=== PATIENT | female | born 1965 | race Asian ===

== ENCOUNTER → 2017-04-27 18:58 | Outpatient (CLI) | payer BC | END | disposition home or self-care (01) | LOC: D.MAMMO 16:00 | DX: Z12.31 Encounter for screening mammogram for malignant neoplasm of breast (principal) ==

== ENCOUNTER → 2018-12-07 09:12 | Outpatient (CLI) | payer BC ==
[~2018-12-07 09:12] MED LIST: BAYER CHEWABLE81 MG PO; LIPITOR20 MG PO; METOPROLOL TART25 MG PO; PLAVIX75 MG PO; losartan-hctz PO
== END | disposition home or self-care (01) ==
LOC: D.CT 09:12
PROVIDERS: ATTEND Family Medicine
DX: I65.29 Occlusion and stenosis of unspecified carotid artery (principal)

== ENCOUNTER 2018-12-26 08:28 | Inpatient (IN) | payer BC ==
[~2018-12-26] VITALS: Ht 162.6 cm; Wt 81.6 kg
--- NOTE | ~2018-12-26 | HEMODYNAMI ---
PATIENT:KYLAH PASTOR MEDICAL RECORD: [id number] : 67 LOCATION:[facility] ADMISSION DATE: 12/28/18 Generatedon:12/30/201811:37 Patient name: KYLAH PASTOR Patient #: [id number] SSN: : 1965 Date of study: 12/30/2018 Page: Of Hemodynamic Procedure Report Patient Data Patient Demographics Procedure consent was obtained First Name: KYLAH Gender: Female Last Name: DAWIT : 1965 [facility] Initial: VICTORINO Age: 53 year(s) Patient #: [id number] Race: Additional ID: [id number] Contact details [address]: [address] [place] [address] State: [place] City: [place] Zip code: [address] Past Medical History Allergies: No known allergies Admission Admission Data Admission Date: 12/28/2018 Admission Time: 6:40 [facility] Height (in.): 64 BSA: 1.91 (m2) Height (cm.): 162.56 BMI: 32.54 (kg/m2) Weight (lbs.): 189.6 Weight (kg.): 86 Lab Results Lab Result Date: 12/30/2018 Lab Result Time: 0:00 Biochemistry Name Units Result Min Max BUN mg/dl 15 --(--*-)-- 7 18 Creatinine mg/dl 0.9 --(-*--)-- 0.6 1.3 CBC Name Units Result Min Max Hematocrit % 34.6 *-(----)-- 42 54 Hemoglobin g/dl 12.1 *-(----)-- 13.5 17.5 Procedure Procedure Types Cath Procedure Diagnostic Procedure [facility] w/Coronaries FFR/IVUS FFR Initial FFR Additional Sedation Charges Moderate Sedation up to 15 minutes Procedure Description Procedure Date Procedure Date: 12/30/2018 Procedure Start Time: 11:16 Procedure End Time: 11:37 Procedure Staff Name Function Froy Sun MD Performing Physician Cony Jarvis RT Monitor Peace De Oliveira RN Nurse Raymond Winter RT Scrub Procedure Data Cath Procedure Fluoroscopy Diagnostic fluoroscopy Total fluoroscopy Time: 4 time: 4 min min Diagnostic fluoroscopy Total fluoroscopy dose: 456 dose: 456 mGy mGy Contrast Material Contrast Material Type Amount (ml) Isovue 300 107 Entry Location Entry Primary Successful Side Size Upsize Upsize Entry Closure Succes sful Closure Location (Fr) 1 (Fr) 2 (Fr) Remarks Device Remarks Femoral Right 5 Fr 6 Fr Exoseal artery Short Estimated blood loss: 5 ml Diagnostic catheters Device Type Used For End Catheter Placement MULTIPACK Pigtail 5 Fr Procedure catheter MULTIPACK JL 4.0 5Fr Procedure catheter MULTIPACK 3DRC 5Fr Procedure catheter Procedure Complications No complications Procedure Medications Medication Administration Route Dosage Oxygen etCO2 Nasal cannula 2 l/min Lidocaine 2% added to field 20 Heparin Flush Bag added to field 2 bags (1000units/500ml NS) 0.9% NaCl I.V. 100 ml/hr Versed I.V. 1 mg Fentanyl I.V. 50 mcg Versed I.V. 1 mg Fentanyl I.V. 50 mcg Hemodynamics Rest BSA: 1.91 (m2) HGB: 12.1 (g/dl) O2 Consumption: Estimated: 178.33 (ml/min) O2 Co nsumption indexed: Estimated:93.37 (ml/min/m) Heart Rate: 60 (bpm) Snapshots Pre Cath Intra NCS Post Cath Vital Signs Time Heart Resp SPO2 etCO2 NIBP (mmHg) Rhythm Pain Sedation Rate (ipm) (%) (mmHg) Status Level (bpm) 11:06:24 60 10 100 36.6 159/87(146) NSR 0 (11) 10(A) , No pain 11:10:47 68 17 100 37.4 143/89(112) NSR 0 (11) 10(A) , No pain 11:15:09 67 17 100 23.9 138/73(114) NSR 0 (11) 10(A) , No pain 11:19:25 65 14 100 37 140/83(112) NSR 0 (11) 9(A) , No pain 11:23:43 64 17 100 40.4 135/82(117) NSR 0 (11) 9(A) , No pain 11:28:01 66 15 100 39.6 128/82(110) NSR 0 (11) 9(A) , No pain 11:32:21 66 18 100 37.3 144/79(112) NSR 0 (11) 10(A) , No pain 11:36:39 65 19 100 39.6 137/83(111) NSR 0 (11) 10(A) , No pain Medications Time Medication Route Dose Verified Delivered Reason Notes Eff ectiveness by by 11:11:29 Oxygen etCO2 2 Froy Buffie used for Nasal l/min Corinne De Oliveira RN procedure cannula 11:11:37 Lidocaine 2% added 20ml Froy Froy for local to vial Corinne Sun MD anesthetic field 11:11:44 Heparin Flush added 2 Froy Froy used for Bag to bags Corinne Sun MD procedure (1000units/500ml field NS) 11:11:53 0.9% NaCl I.V. 100 Froy Buffie Per ml/hr Corinne De Oliveira RN physician 11:14:14 Versed I.V. 1 mg Froy Presleyie for Corinne De Oliveira RN sedation 11:14:20 Fentanyl I.V. 50 Froy Buffie for mcg Corinne De Oliveira RN sedation 11:22:41 Versed I.V. 1 mg Froy Buffie for Corinne De Oliveira RN sedation 11:22:45 Fentanyl I.V. 50 Froy Buffie for mcg Corinne De Oliveira RN sedation Procedure Log Time Note 10:34:02 Raymond Winter RT(R) sent for patient. Start room use. 10:34:03 Time tracking: Regular hours (M-F 7:00 - 5:00) 10:34:07 Plan of Care:Hemodynamics will remain stable., Cardiac rhythm will remain stable., Comfort level will be maintained., Respiratory function will remain adequate., Patient/ family verbilizes understanding of procedure., Procedure tolerated without complication., Recovers from procedure without complications.. 10:44:32 Signed procedure consent form obtained from patient. 10:44:34 Diagnostic Cath status Urgent 10:45:41 Patient allergic to No known allergies 10:45:46 Patient Weight : 189.6 lbs 10:45:51 Patient Height : 64 inches 10:46:43 Lab Result : BUN 15 mg/dl 10:46:43 Lab Result : Creatinine 0.9 mg/dl 10:46:43 Lab Result : Hematocrit 34.6 % 10:46:43 Lab Result : Hemoglobin 12.1 g/dl 10:58:09 Patient received from CVICU to CCL 1 Alert and oriented. Tansferred to table in Supine position. 10:58:10 Warm blankets applied, and arron hugger turned on for patient comfort. 10:58:10 Correct patient and procedure confirmed by team. 10:58:10 ECG and BP/O2 sat monitors applied to patient. 11:05:00 Vital chart was started 11:05:01 Baseline sample Acquired. 11:05:04 Rhythm: sinus rhythm 11:05:06 Full Disclosure recording started 11:05:07 Pre-procedure instructions explained to patient. 11:05:07 Pre-op teaching completed and patient verbalized understanding. 11:05:20 Family unavailable. 11:05:22 Patient NPO since Midnight. 11:05:24 Is patient on blood thinner?Yes 11:05:35 PRE LOADED PLAVIX THIS MORNING 11:05:37 Patient diabetic? No. 11:05:40 Patient not . Patient has had tubal. 11:05:43 Previous problem with sedation/anesthesia? No ? 11:05:44 Snore? Yes 11:05:45 Sleep apnea? No 11:05:46 Deviated septum? No 11:05:49 Opens mouth fully? Yes 11:05:52 Sticks out tongue? Yes 11:05:54 Airway obstruction? No ? 11:05:56 Dentures? No MISSING TOOTH 11:05:59 Pre procedure: right dorsailis pedis pulse 1+ Palpable, but thready & weak; easily obliterated 11:06:01 Patient pain scale 0/10 ?. 11:06:14 IV patent on arrival in Lt subclavian with 0.9% NaCl at KVO. 11:06:17 Lab results completed and on chart. 11:06:21 Right groin area was prepped with chlora-prep and draped in sterile fashion 11:06:22 Alarms reviewed by R. N. 11:06:22 Sharps counted by scrub and verified by R.N. 11:06:38 RT GROIN PREPPED DUE TO POST CAROTID SURGERY 11:06:40 Use device set Femoral Dx 11:06:41 ACIST Syringe (53725) opened to sterile field. 11:06:41 Bag Decanter (2002S) opened to sterile field. 11:06:42 ACIST Hand Control (39382) opened to sterile field. 11:06:42 ACIST Manifold (38618) opened to sterile field. 11:06:43 Tegaderm 4 x 4 (1626W) opened to sterile field. 11:06:45 Medline Cath Pack ([id number]) opened to sterile field. 11:06:45 DIAGNOSTIC WIRE .035 260cm J wire (252857) opened to sterile field. 11:06:46 DIAGNOSTIC Multipack 5Fr catheter set (IS5902) opened to sterile field. 11:06:47 SHEATH 5FR [place] (XUR221) opened to sterile field. 11:11:29 Oxygen 2 l/min etCO2 Nasal cannula was administered by Peace De Oliveira RN; used for procedure; 11:11:37 Lidocaine 2% 20ml vial added to field was administered by Froy Sun MD; for local anesthetic; 11:11:44 Heparin Flush Bag (1000units/500ml NS) 2 bags added to field was administered by Froy Sun MD; used for procedure; 11:11:53 0.9% NaCl 100 ml/hr I.V. was administered by Peace De Oliveira RN; Per physician; 11:13:50 --------ALL STOP TIME OUT------ 11:13:50 Final Timeout: patient, procedure, and site verified with staff and physician. All members of the team are in agreement. 11:13:51 Right groin site verified by team. 11:13:54 Maximum allowable Isovue 300 dose 300ml. Physician notified. (300ml for normal creatinines. For patients with creatinine of 1.7 or higher multiply weight(kg) x 5 divided by creatinine.) 11:13:57 Fire Safety Assessment: A--An alcohol-based skin anteseptic being used preoperatively., C--Open oxygen or nitrous oxide is being used., D--An ESU, laser, or fiber-optic light is being used. 11:14:00 Physical assessment completed. ASA score P 2 - A patient with mild systemic disease as per Froy Sun MD. 11:14:04 Sedation plan: IV Moderate Sedation Medication:Versed, Fentanyl 11:14:14 Versed 1 mg I.V. was administered by Peace De Oliveira RN; for sedation; 11:14:20 Fentanyl 50 mcg I.V. was administered by Peace De Oliveira RN; for sedation; 11:16:31 Zero performed for pressure channel P1 11:16:36 Procedure started. 11:16:38 Local anesthetic to right femoral artery with Lidocaine 2% by Froy Sun MD.INITIAL ACCESS ONLY 11:16:48 A 5 Fr sheath was inserted into the Right Femoral artery 11:17:11 A MULTIPACK Pigtail 5 Fr catheter was advanced over the wire and used for Procedure. 11:17:17 LV gram done using FREGOSO 11:17:21 Injector settings: Ml/sec: 10, Volume: 20, 11:17:28 EF : 60 % 11:17:29 Catheter removed. 11:17:33 A MULTIPACK JL 4.0 5Fr catheter was advanced over the wire and used for Procedure. 11:18:55 LCA angiography performed. 11:19:31 Catheter removed. 11:19:35 A MULTIPACK 3DRC 5Fr catheter was advanced over the wire and used for Procedure. 11:19:49 SHEATH 6FR [place] (MCP518) opened to sterile field. 11:19:53 INFLATOR Merit BasixCompak (US7857) opened to sterile field. 11:20:11 [place] Verrata Plus pressure wire (70009P) opened to sterile field. 11:20:19 GUIDE 6FR XBLAD 3.5 catheter ([id number]) opened to sterile field. 11:20:30 RCA angiography performed. 11:20:32 Catheter removed. 11:21:12 Sheath upsized to a 6 Fr Short. 11:21:37 6 Fr XBLAD 3.5 guide catheter was inserted over the wire 11:21:53 FFR/IFR wire advanced. 11:22:41 Versed 1 mg I.V. was administered by Peace De Oliveira RN; for sedation; 11:22:45 Fentanyl 50 mcg I.V. was administered by Peace De Oliveira RN; for sedation; 11:24:38 IFR REMOVED 11:24:48 Guide Catheter removed. unable to cannulate vessel. 11:24:52 GUIDE 6FR XBLAD 4.0 catheter ([id number]) opened to sterile field. 11:24:59 6 Fr XBLAD 4 guide catheter was inserted over the wire 11:25:30 FFR/IFR wire advanced. 11:27:38 IFR PASS TO THE DIAGONAL LESION PERFORMED 11:28:23 IFR REMOVED 11:28:28 Guide catheter removed. 11:28:43 GUIDE 6FR 3DRC catheter (BP93XIN) opened to sterile field. 11:28:48 6 Fr 3DRC guide catheter was inserted over the wire 11:29:22 FFR/IFR wire advanced. 11:30:40 IFR PASS TO THE RCA LESION PERFORMED 11:30:45 IFR REMOVED 11:30:51 Guide catheter removed. 11:30:57 EXOSEAL 6Fr (EX600) opened to sterile field. 11:31:08 Sheath removed intact; hemostasis achieved with Exoseal to the Right Femoral artery. 11:31:13 Procedure ended.(Physican Out) 11:31:55 Fluoroscopy dose: 456 mGy 11:31:55 Flurop Dose total: 456 11:31:59 Contrast amount:Isovue 300 107ml. 11:32:02 Fluoroscopy time 04.00 minutes. 11:32:09 Sharps counted by scrub and verified by R.N. 11:32:12 Post-op/insertion site Right Femoral artery dressed using a 4 x 4 and Tegaderm. 11:32:15 Post-procedure physical assessment completed. ASA score P 2 - A patient with mild systemic disease as per Froy Sun MD. 11:32:26 Post procedure rhythm: sinus rhythm 11:32:33 Estimated blood loss: 5 ml 11:32:35 Post procedure instruction explained to patient.Patient verbalizes understanding. 11:32:35 Patient needs reinforcement of post procedure teaching. 11:32:58 Procedure type changed to Cath procedure, Diagnostic procedure, LHC, LHC w/Coronaries, FFR/IVUS, FFR Initial, FFR Additional, Sedation Charges, Moderate Sedation up to 15 minutes 11:33:21 Procedure and supply charges have been captured, reviewed, submitted and are correct. 11:33:24 Procedure Complication : No complications 11:36:59 Vital chart was stopped 11:36:59 See physician's report for complete and final results. 11:37:04 Report given to CVICU. 11:37:06 Patient transfered to CVICU with Bed. 11:37:08 Procedure ended. 11:37:08 Full Disclosure recording stopped 11:37:13 End room use (Document Last) Device Usage Item Name Manufacture Quantity Catalog Hospital Part Current Minima l Lot# / Number Charge Number Stock Stock Serial# Code ACEMORY Acist 1 60886 776849 675802 762217 20 Syringe Medical (16990) Systems Inc Bag Microtek 1 943929 83277 644538 5 Decanter Medical Inc. () ACIST Hand Acist 1 89039 169970 530610 495561 5 Control Medical (12783) Systems Inc ACIST Acist 1 69322 695376 556993 046524 5 Manifold Medical (49885) Systems Inc Tegaderm 4 3M 1 1626W 778711 199048 173870 5 x 4 (1626W) Medline Medline 1 [id number] 901112 28543 133539 5 Cath Pack ([id number]) DIAGNOSTIC [facility] [place] 1 439503 138017 658299 422987 30 WIRE .035 260cm J wire (360098) DIAGNOSTIC Cardinal 1 OE4201 682186 30675 584327 30 Multipack Health 5Fr catheter set (XY0367) SHEATH 5FR Terumo 1 ZHK267 090324 165439 059031 5 [place] (HEK913) MULTIPACK Cardinal 1 831846 5 Pigtail 5 Health Fr catheter MULTIPACK Cardinal 1 369069 5 JL 4.0 5Fr Health catheter MULTIPACK Cardinal 1 418456 5 3DRC 5Fr Health catheter SHEATH 6FR Terumo 1 TIV350 581907 307915 535623 40 [place] (RFJ015) INFLATOR Merit 1 OQ3441 248635 311984 913128 15 [facility] Medical BasixCompak (FM0660) [place] Mayodan 1 75753X 745520 556955959 535505 5 Verrata Plus pressure wire (91291L) GUIDE 6FR Cardinal 1 15889022 009794 342440 587799 10 XBLAD 3.5 Health catheter (73965481) GUIDE 6FR Cardinal 1 98743863 021886 603545 991835 3 XBLAD 4.0 Health catheter (47976113) GUIDE 6FR Medtronic 1 OQ44TON 608894 207496 624037 1 3DRC catheter (LF70VFI) EXOSEAL 6Fr Cardinal 1 EX600 726411 160122 549749 10 (EX600) Health Signature Audit [place] Stage Time Signature Unsigned Intra-Procedure 12/30/2018 Cony Jarvis 11:37:27 AM RT(R) Signatures Monitor : Cony Jarvis Signature : RT Date : Time : [address] [place] [address]
[2018-12-26] MEDS ORDERED: METOPROLOL TART25 MG PO (09:02)
[2018-12-26] MEDS ORDERED: PLAVIX75 MG PO (09:02)
[2018-12-26] MEDS ORDERED: losartan-hctz PO (09:03)
[2018-12-26] MEDS ORDERED: LIPITOR20 MG PO (09:04)
[2018-12-26] MEDS ORDERED: BAYER CHEWABLE81 MG PO (09:04)
[2018-12-26 11:24] LABS: HEMATOCRIT 40.4 % (36.0-48.0); HEMOGLOBIN 14.5 g/dL (12-16); MCH 32.8 pg (26.0-34.0); MCHC 35.9 g/dL (31.0-37.0); MCV 91.4 fL (80.0-100.0); MEAN PLATELET VOLUME 11.1 fL (7.4-10.4); RBC 4.42 10x6/uL (4.00-5.40); RDW 12.7 % (11.5-14.5); WBC 10.1 10x3/uL (4.8-10.8)
[2018-12-26 11:25] LABS: ALBUMIN 4.3 g/dL (3.4-5.0); ANION GAP 13.7 mmol/L (8-16); BILIRUBIN - TOTAL 0.68 mg/dL (0.2-1.3); CALCIUM 9.3 mg/dL (8.5-10.1); CARBON DIOXIDE 24.3 mmol/L (21.0-32.0); PROTEIN - SERUM 7.7 g/dL (6.4-8.2)
[2018-12-26 11:30] LABS: APTT 30.4 SECONDS (22.8-39.4); INR 0.95 (0.85-1.17); PROTIME 12.2 SECONDS (11.6-15.0)
[2018-12-26 12:25] LABS: APPEARANCE CLEAR (CLEAR); COLOR YELLOW (YELLOW); SPECIFIC GRAVITY 1.015 (1.005-1.020)
[2018-12-26 12:26] LABS: BACTERIA FEW /hpf (NONE SEEN); BILIRUBIN NEGATIVE (NEGATIVE); EPITHELIAL CELLS RARE /hpf (0-5); GLUCOSE NEGATIVE (NEGATIVE); KETONE NEGATIVE (NEGATIVE); MUCUS <1+ /lpf (NONE SEEN); NITRITE NEGATIVE (NEGATIVE); PROTEIN NEGATIVE (NEGATIVE); RED CELLS - URINE OCC /hpf (0-5); UROBILINOGEN NORMAL (NORMAL); WHITE CELLS - URINE RARE /hpf (0-5)
[2018-12-28] VITALS (33 sets, daily range): BP systolic 82–153; BP diastolic 43–72; Ht 162.6 cm; Wt 81.6 kg
--- NOTE | 2018-12-28 18:34 | NUR ---
1500-CXR DONE-NOTED SINUS BRADYCARDIA-DIRECTED TO HOLD LOPRESSOR PM DOSE IF HEART RATE <60-R NECK SOFT TO TOUCH-J VELASQUEZ DRAIN IN PLACE AND COMPRESSED 1520-FAMILY BROUGHT TO [facility]-PT AWAKENS EASILY SB ON MONITOR 1645-ULTRAM PO GIVEN FOR 02/04 INCISIONAL-SWALLOWS WITHOUT MARKED DIFFICULTY 1705-NOTED HR 44 SB-NATALIA 105/50-0536-MXGAL HR 41 JUNCTIONAL NIBP 100/68-DOPAMINE 3MCG STARTED-ON STANDBY -ACCOMPANIED WITH PT FROM [place] 1710DR SNE NOTIFIED OF PRESENT STATUS-FREQUENT JUNCTIONAL TO SINUS NICA-DOPAMINE TITRATED TO 5MCG TO MEET PARAMETER OF HR 60-ABP INCREASED TO 155/94-NTG TITRATED TO 11ML/H TO MAINTAIN ABP PARAMETER <140-AVAILABLE ON STANDBY FROM OR 1720-RETURN CALL WITH CONTINUED FREQUENT JUNCTIONAL 40 RHYTHM ALT WITH SINUS NICA-FURTHER DIRECTION GIVEN 1750-ADDITIONAL ORDER RECIEVED -CURRENTLY SR WITH NO FURTHER EPISODES OF JUCTINAL NOTED DOPAMINE AT 2CG-NITRO OFF-ABP 133/56-HR 60 SR -R NECK SOFT TO TOUCH 1810-ADDITIONAL ORDER RECIEVED-DOPAMINE OFF AND NTG OFF-REMAIN ON STANDBY-SR 55-CON522/43-WITHIN NEW PARAMETER AND ABP PARAMETER
--- NOTE | 2018-12-28 20:07 | NUR ---
PT CONTINUES TO BE SINUS NICA WITH A RATE RUNNING IN THE MID TO LOW 40'S OCCASIONAL BREIF DROP INTO UPPER 30'S. EKG OBTAINED MD CONTACTED. PT HAD STATED SHE HAS MILD CHEST PAIN 2/10 ON SCALE. "FEELS LIKE SOMEONE PUNCHED ME IN THE CHEST" DR BARRAGAN CONTACTED. ORDERS RECEIVED FOR MORPHINE IV 1-2 MG Q1HPRN CHEST PAIN. CRASH CART PLACED IN ROOM A PRECAUTION IN CASE OF EMERGENCY NEED FOR PACING ETC.
--- NOTE | 2018-12-28 20:15 | NUR ---
PT STATES CHEST PAIN IS NO LONGER PRESENT. WILL MONITOR
[2018-12-29] VITALS (20 sets, daily range): BP systolic 101–149; BP diastolic 48–74
--- NOTE | 2018-12-29 01:00 | NUR ---
PATIENT IS SLEEPING, HR CONTINUES TO BE BRADYCARDIC, VS OTHERWISE STABLE, PATIENT IN NO APPARENT DISTRESS, WILL CONTINUE TO MONITOR
[2018-12-29 05:42] LABS: HEMATOCRIT 34.6 % (36.0-48.0); HEMOGLOBIN 12.1 g/dL (12-16); MCH 32.5 pg (26.0-34.0); MEAN PLATELET VOLUME 10.5 fL (7.4-10.4); RBC 3.72 10x6/uL (4.00-5.40); RDW 12.8 % (11.5-14.5); WBC 11.2 10x3/uL (4.8-10.8)
[2018-12-29 06:09] LABS: ANION GAP 16.6 mmol/L (8-16); CALCIUM 7.9 mg/dL (8.5-10.1); CARBON DIOXIDE 21.3 mmol/L (21.0-32.0); CREATININE - SERUM 0.9 mg/dL (0.6-1.3); POTASSIUM - SERUM 3.9 mmol/L (3.5-5.1)
--- NOTE | 2018-12-29 06:22 | NUR ---
CLORHEX WASH, LINEN CHANGE AND CONTRERAS CARE PERFORMED. BRANDON GUZMAN
--- NOTE | 2018-12-29 09:45 | OP ---
PATIENT NAME: KYLAH PASTOR MEDICAL RECORD: [id number] :67 LOCATION:[id number] ADMISSION DATE:12/28/18 SURGEON: BRONSON CHATTERJEE MD DATE OF OPERATION: 12/28/2018 SURGEON: Bronson Chatterjee MD CONTACT AND SERVICE CLERKS SUPERVISOR: Veto Perez MD PROCEDURE PERFORMED: Right carotid endarterectomy. PREOPERATIVE DIAGNOSIS: Symptomatic critical right internal carotid artery stenosis. POSTOPERATIVE DIAGNOSIS: Symptomatic critical right internal carotid artery stenosis. ANESTHESIA: General endotracheal anesthesia. ESTIMATED BLOOD LOSS: 50 cc. COMPLICATIONS: None. SPECIMENS: Plaque. CONDITION: Stable. DISPOSITION: CV ICU. OPERATIVE FINDINGS: 1. Discrete tight plaque in the internal carotid, the external carotid was lateral to the internal carotid and was retracted anteriorly for exposure. 2. Neurologically intact to CV ICU. OPERATIVE INDICATIONS: Symptomatic right carotid stenosis. DESCRIPTION OF PROCEDURE: The patient brought to the operative suite. General anesthesia was obtained. The patient was prepped and draped. An oblique incision was made in the neck, taken down through the subcutaneous tissue. Common carotid was exposed and encircled. External carotid was exposed, but due to the lateral aspect of the thyroid branch it was divided between ligatures. The internal carotid was dissected out distally. Heparin was given. After the heparin circulated backbleeding, the internal carotid was controlled with a bulldog clamp. Inflow to the common carotid with a vascular clamp and the external carotid controlled with vessel loops. EEG was monitored and obviously heparin had been given and was redosed at 30 minutes. The EEG was normal for 2 minutes, proceeded with endarterectomy, dividing the plaque and thorough irrigation, removal of loose bits of debris suturing a CorMatrix patch along the edges and completing the anastomosis after flushing all the major arterial systems and the endarterectomy bed again. Interrupted sutures for hemostasis. Flow restored. Drain placed. Wound closed in 3 layers including Dermabond on the skin. Anesthesia reversed. Neurologically intact to the CVICU. TRANSINT:[id number] Voice Confirmation ID: [id number] DOCUMENT ID: [id number] OPERATIVE REPORT [id number] KYLAH PASTOR BRONSON CHATTERJEE MD at 0945 CC: [id number] DICTATION DATE: 12/28/18 1410 ENDOSCOPY SPECIALTY TECHNICIAN: 12/28/[address] [facility] [address] [id number]
--- NOTE | 2018-12-29 14:45 | NUR ---
0700-RECIVED AWAKE AND ALERT-[facility]SISTED TO [facility]-CHAIR TOLERATED WELL-SR -SINUS NICA ON MONITOR-DENIES CHEST DISCOMFORT-NOTED NO TRACHEAL DEVIATION-R NECK INCISION SOFT TO TOUCH-BENSON =STRONG 1000-DR CHATTERJEE AT [facility]-SPOKE WITH PT REGARDING CURRENT STATUS AND SERIES OF EVENTS-R JPRATT D/C'D DIRECTED BY DR CHATTERJEE-R RADIAL MARC D/C'D PER POLICY-L PERIPHERAL IV D/C'D 1115-12 LEAD REPEATED DIRECTED BY DR BARRAGAN AT BEDSIDE AND SPOKE WITH PT 1230-L 2LCVL SALINE LOCKED
--- NOTE | 2018-12-29 19:30 | NUR ---
SHIFT ASSESSMENT COMPLETE, PER NURSING FLOWSHEET. PATIENT GETS UP TO BATHROOM WITH MINIMAL ASSIST, PRIMARILY MANAGING LINES FOR MONITORING EQUIPMENT. NO NEEDS VOICED OR NOTED AT THIS TIME, C/L IN REACH
--- NOTE | 2018-12-29 21:00 | NUR ---
PATIENT INDEPENDENTLY REPOSITIONS SELF. PLAN OF CARE FOR THIS SHIFT REVIEWED WITH PATIENT, PATIENT HR IS BRADYCARDIC, M.D. AWARE, VS OTHERWISE STABLE, WILL CONTINUE TO MONITOR
--- NOTE | 2018-12-29 23:00 | NUR ---
RE-ASSESSMENT COMPLETE, PER NURSING FLOWSHEET. PATIENT CONTINUES TO REPOSITION SELF INDEPENDENTLY, CONTINUE POC
[2018-12-30] VITALS (21 sets, daily range): BP systolic 115–150; BP diastolic 61–91
--- NOTE | 2018-12-30 01:00 | NUR ---
PATIENT IS SLEEPING, IN NO APPARENT DISTRESS, HR REMAINS BRADYCARDIC IN 50'S, ALL OTHER VS CONTINUE TO REMAIN STABLE, CONTINUE POC, C/L IN REACH
--- NOTE | 2018-12-30 03:00 | NUR ---
RE-ASSESSMENT COMPLETE, PER NURSING FLOWSHEET. PATIENT CONTINUES TO FUNCTION INDEPENDENTLY, NO OTHER NEEDS VOICED OR NOTED AT THIS TIME, C/L IN REACH
--- NOTE | 2018-12-30 05:00 | NUR ---
PATIENT UP TO BATHROOM AND SINK, INDPENDENTLY PERFOMING ADL'S OF ORAL CARE AND HAIR CARE. SOME SWELLING NOTED TO RIGHT SIDE OF NECK UNDER SURGICAL DRESSING, WILL CONTINUE TO MONITOR
[2018-12-30 07:49] LABS: BASOPHILS 0.3 % (0-2); EOSINOPHILS 1.8 % (0-7); HEMATOCRIT 33.7 % (36.0-48.0); HEMOGLOBIN 11.5 g/dL (12-16); IMMATURE GRANULOCYTES 0.5 % (0-5); LYMPHOCYTES 17.8 % (15-50); MCH 31.9 pg (26.0-34.0); MCHC 34.1 g/dL (31.0-37.0); MCV 93.4 fL (80.0-100.0); MEAN PLATELET VOLUME 10.6 fL (7.4-10.4); NEUTROPHILS 72.6 % (40-80); PLATELET COUNT 174 10x3/uL (130-400); RBC 3.61 10x6/uL (4.00-5.40); RDW 12.7 % (11.5-14.5); WBC 9.7 10x3/uL (4.8-10.8)
[2018-12-30 08:11] LABS: ALBUMIN 3.5 g/dL (3.4-5.0); ANION GAP 11.3 mmol/L (8-16); BILIRUBIN - TOTAL 0.38 mg/dL (0.2-1.3); CALCIUM 8.3 mg/dL (8.5-10.1); CARBON DIOXIDE 26.2 mmol/L (21.0-32.0); CREATININE - SERUM 1.1 mg/dL (0.6-1.3); POTASSIUM - SERUM 3.5 mmol/L (3.5-5.1); PROTEIN - SERUM 6.8 g/dL (6.4-8.2)
--- NOTE | 2018-12-30 08:38 | NUR ---
0715-RECIEVED AWAKE AND ALERT-C/O R EYE HEADACHE-3 10-DENIES VISION DISTURBANCE-R NECK INCISION AND [id number] TRACHEAL DEVIATION NOTED-NO CHANGE IN SWELLING- GIVEN-BOTH DR BARRAGAN AND SEN NOTIFIED-CNTINUE NPO FOR PLANNED CATH
--- NOTE | 2018-12-30 09:51 | NUR ---
FAMILY AT BEDSDIE-PREMEDS GIVEN-PT STATED HEADACHE LESSENED-
--- NOTE | 2018-12-30 12:00 | NUR ---
RETURNED FROM ACCOUNT INFORMATION CLERK-SUPINE -R GROIN SOFT TO TOUCH-NO HEMATOMA-R NECK DRG REMOVED-EDEMA NOTED WITH NO CHANGE-NO TRACHEAL DEVIATION-AWAKE AND ALERT-L CVL INFUSING NS AT 100ML/H-SET FOR 400ML OVER 4H-NIECE AT BEDSDIE-STATUS REPORT AND FINDINGS GIVEN VERBALLY DIRECTED BY PT-O2 AT 2L
--- NOTE | 2018-12-30 16:43 | NUR ---
1345-R GROIN SOFT TO TOUCH-NO HEMATOMA NOTED-HOB ELEVATED 1400-AMBULATED IN RM-R GROIN SOFT TO TOUCH 1600-L CVL SALINE LOCKED
--- NOTE | 2018-12-30 19:00 | NUR ---
REPORT RECEIVED, SHIFT ASSESSMENT COMPLETE PER FLOW SHEET, PT AWAKE AND ALERT, DENIES PAIN OR NEEDS, MOVES WITHOUT ASSIST IN BED, RIGHT SIDE OF NECK HAS SLIGHT EDEMA AROUND RCA SITE, RCA SITE C/D/I, VSS, WILL CONTINUE TO MONITOR
--- NOTE | 2018-12-30 21:00 | NUR ---
PT OOB TO BATHROOM WITHOUT ASSIST, PT DENIES NEED, AMBULATED BACK TO BED, VSS, NO FURTHER NEEDS AT THIS TIME
--- NOTE | 2018-12-30 23:00 | NUR ---
REASSESSMENT COMPLETE PER FLOW SHEET, NO ACUTE CHANGES NOTED, VSS, LARGE CUP OF ICE GIVEN PER REQUEST, PT REPOSITIONS SELF IN BED WITHOUT ASSIST FREQUENTLY, DENIES PAIN OR NEEDS AT THIS TIME WILL CONTINUE TO MONITOR
[2018-12-31] VITALS (12 sets, daily range): BP systolic 113–147; BP diastolic 60–76
--- NOTE | 2018-12-31 01:00 | NUR ---
PT OOB TO BATHROOM, VSS, NO PAIN OR NEEDS AT THIS TIME, REPOSITIONED IN BED FOR COMFORT, PT AAOx4 NO S/S OF ACUTE DISTRESS NOTED, WILL CONTINUE TO MONITOR
--- NOTE | 2018-12-31 03:00 | NUR ---
REASSESSMENT COMPLETE PER FLOW SHEET, NO ACUTE CHANGES OR DISTRESS NOTED, RIGHT NECK/FACE HAS SLIGHT SWELLING, PT DENIES VISION OR HEADACHES, EQUAL MOVEMENT WITH EXTREMITIES BILAT, REPOSITIOES FREQUENTLY WITHOUT ASSIST FOR COMFORT, VSS, DENIES NEEDS AT THIS TIME, WILL CONTINUE TO MONITOR
--- NOTE | 2018-12-31 05:00 | NUR ---
COMPLETE BATH AND LINEN CHANGE WITH NEW GOWN, PT COMPLETED WITH MINIMAL ASSIST FROM NURSE, AMBULATED IN ROOM AND TO CHAIR WITHOUT ASSIST, GAIT STEADY, PPP VSS, NSR ON CM, PT DENIES PAIN OR NEEDS AT THIS TIME, WILL CONTINUE TO MONITOR
--- NOTE | 2018-12-31 06:30 | NUR ---
PT SINUS BRADYCARDIC ON CM 50-60'S, PT AWAKE AND ALERT DENIES DISCOMFORT OR CP, PT RESTING IN BED WITH HOB ELEVATED, OTHER VSS, WILL CONTINUE TO MONITOR AND WILL NOTIFY ONCOMING RN
--- NOTE | 2018-12-31 07:00 | NUR ---
REPORT RECIEVED FROM THE OFF GOING RN. SEE ASSESSMENT IN THE PTS FLOW SHEET. PT SITTING IN BED. PT DENIES PAIN. INCISION WELL APPROXIMATED TO THE RIGHT JUGULAR. TRACHEA MIDLINE. NEUROCHECKS WNLS. PT ABLE TO GET OOB WITH NO ISSUES AND SIT IN HER BEDSIDE CHAIR. CLEAR LIQUID DIET PROVIDED BY THE KITCHEN. PT REQUEST A REGULAR BREAKFAST. KITCHEN CALLED AND MADE AWARE. MEAL BEING DELIVERED SOON. VSS. WILL CONT POC.
--- NOTE | 2018-12-31 08:00 | NUR ---
DR CHATTERJEE AT THE PTS BEDSIDE. PLAN FOR DISCHARGE SOMETIME TODAY.
--- NOTE | 2018-12-31 11:00 | NUR ---
CVL DC'D WITH THE CATHETER TIP INTACT. DRESSING APPLIED. WILL CONT POC.
[2018-12-31] MEDS ORDERED: NICORETTE2 MG PO (11:45)
[2018-12-31] MEDS ORDERED: ULTRAM50 MG PO (11:48)
--- NOTE | 2018-12-31 12:00 | NUR ---
LUNCH TRAY PROVIVIDED FOR THE PT. WAITING FOR SARAI FOR DC INSTRUCTIONS. WILL CONT PO.
--- NOTE | 2018-12-31 13:42 | NUR ---
FRANCY HINTON RN, IN WITH THE PT GOING OVER DC INSTRUCTIONS.
--- NOTE | 2018-12-31 14:23 | NUR ---
ALL BELONINGS ACCOUTNED FOR. DISCHARGE INSTRUCTIONS WENT OVER WITH THE PT. PT HAS NO QUESTIONS AT THIS TIME. VSS. PT LEFT IN A STABLE CONDITION. GOT INTO THE [place] WITH HER FRIEND.
--- NOTE | 2019-01-01 13:28 | MORECARE ---
CASE MANAGEMENT DISCHARGE SUMMARY PATIENT: KYLAH PASTORI UNIT: [id number] ADM DATE: 12/28/18 AGE: 53 : 67 SEX: F ROOM/BED: [facility] AUTHOR: MILLY GARRISON PHYSICIAN: REFERRING PHYSICIAN: BRONSON CHATTERJEE MD DATE OF SERVICE: 01/01/19 Discharge Plan Patient Name: KYLAH PASTOR Facility: [facility]:[employer] : 1965 Planned Disposition: Home Anticipated Discharge Date: Discharge Date: 12/31/2018 Expected LOS: Initial Reviewer: [email or web address] Initial Review Date: 12/31/2018 Generated: 01/01/19 2:28 pm DCPIA - Discharge Planning Initial Assessment Updated by [email or web address]: Saloni Garrison on 01/01/19 1:25 pm * Is the patient Alert and Oriented? Yes * How many steps to enter\exit or inside your home? * PCP BOBBY * Pharmacy [facility] * Preadmission Environment Home Alone * ADLs Independent * Equipment None * List name and contact numbers for known caregivers / representatives who currently or will assist patient after discharge: KARI GARCIA - [facility] - [phone] * Verbal permission to speak to the caregivers and representatives has been obtained from the patient. Yes * Community resources currently utilized None * Additional services required to return to the preadmission environment? No * Can the patient safely return to the preadmission environment? Yes * Has this patient been hospitalized within the prior 30 days at any hospital? No Patient Name: KYLAH PASTOR Page [phone] at 1328 All edits/amendments must be made on the electronic document DICTATION DATE: 01/01/19 1328 RN PLACEMENT: ANIYA 01/01/19 1328 RPT#: [id number] DC DATE:12/31/18 STATUS: DIS IN [facility] [address] [place] [address] END OF REPORT
--- NOTE | 2019-01-01 13:37 | MORECARE ---
CASE MANAGEMENT DISCHARGE SUMMARY PATIENT: KYLAH PASTOR UNIT: [id number] ADM DATE: 12/28/18 AGE: 53 : 67 SEX: F [facility] AUTHOR: MELI,DOC PHYSICIAN: REFERRING PHYSICIAN: BRONSON CHATTERJEE MD DATE OF SERVICE: 01/01/19 Discharge Plan Patient Name: KYLAH PASTOR Facility: [facility]:[place] : 1965 Planned Disposition: Home Anticipated Discharge Date: Discharge Date: 12/31/2018 Expected LOS: Initial Reviewer: [email or web address] Initial Review Date: 12/31/2018 Generated: 01/01/19 2:37 pm Comments DCP- Discharge Planning Updated by [email or web address]: Saloni Garrison on 01/01/19 12:[address] LATE ENTRY 12/31/18 @ 1015 Patient Name: KYLAH PASTOR Admission Status: Elective Accout number: [id number] Admission Date: 12-28-2018 : 1965 Admission Diagnosis:OCCLUSION AND STENOSIS OF RIGHT CAROTID ARTERY Attending: BRONSON CHATTERJEE Current LOS: 3 Anticipated DC Date: Planned Disposition: Home Primary Insurance: [employer] EXCHANGE Discharge Planning Comments: CM met with patient at bedside about discharge planning /needs. Patient states she lives alone. Patient states she plans to discharge to her home. States she will have family transport her home upon discharge. Denies need for home health or other community resource needs. States home environment is safe. Denies any discharge needs or concerns at this time. CM will continue to follow and assist as needed with discharge planning / needs. Store Merchandiser: Saloni Garrison DCPIA - Discharge Planning Initial Assessment Updated by [email or web address]: Saloni Garrison on 01/01/19 1:25 pm * Is the patient Alert and Oriented? Yes * How many steps to enter\exit or inside your home? * PCP BOBBY * Pharmacy [facility] * Preadmission Environment Home Alone * ADLs Independent * Equipment None * List name and contact numbers for known caregivers / representatives who currently or will assist patient after discharge: KARI HAMPTON JOSE - [facility] - [phone] * Verbal permission to speak to the caregivers and representatives has been obtained from the patient. Yes * Community resources currently utilized None * Additional services required to return to the preadmission environment? No * Can the patient safely return to the preadmission environment? Yes * Has this patient been hospitalized within the prior 30 days at any hospital? No Last DP export: 01/01/19 12:28 pm Patient Name: KYLAH PASTOR Page [phone] at 1337 All edits/amendments must be made on the electronic document DICTATION DATE: 01/01/19 1336 FIRE ALARM INSPECTOR: ANIYA 01/01/19 1336 RPT#: [id number] DC DATE:12/31/18 STATUS: DIS IN [facility] [address] [place] [address] END OF REPORT
--- NOTE | 2019-01-01 13:52 | MORECARE ---
CASE MANAGEMENT DISCHARGE SUMMARY PATIENT: KYLAH PASTOR UNIT: [id number] ADM DATE: 12/28/18 AGE: 53 : 67 SEX: F [facility] AUTHOR: MELI,DOC PHYSICIAN: REFERRING PHYSICIAN: BRONSON CHATTERJEE MD DATE OF SERVICE: 01/01/19 Discharge Plan Patient Name: KYLAH PASTOR Facility: [facility]:[place] : 1965 Planned Disposition: Home Anticipated Discharge Date: Discharge Date: 12/31/2018 Expected LOS: Initial Reviewer: [email or web address] Initial Review Date: 12/31/2018 Generated: 01/01/19 2:52 pm Comments DCP- Discharge Planning Updated by [email or web address]: Saloni Garrison on 01/01/19 12:[address] LATE ENTRY 12/31/18 @ 1015 Patient Name: KYLAH PASTOR Admission Status: Elective Accout number: [id number] Admission Date: 12-28-2018 : 1965 Admission Diagnosis:OCCLUSION AND STENOSIS OF RIGHT CAROTID ARTERY Attending: BRONSON CHATTERJEE Current LOS: 3 Anticipated DC Date: Planned Disposition: Home Primary Insurance: [employer] EXCHANGE Discharge Planning Comments: CM met with patient at bedside about discharge planning /needs. Patient states she lives alone. Patient states she plans to discharge to her home. States she will have family transport her home upon discharge. Denies need for home health or other community resource needs. States home environment is safe. Denies any discharge needs or concerns at this time. CM will continue to follow and assist as needed with discharge planning / needs. Card Checker: Saloni Garrison DCPIA - Discharge Planning Initial Assessment Updated by [email or web address]: Saloni Garrison on 01/01/19 1:25 pm * Is the patient Alert and Oriented? Yes * How many steps to enter\exit or inside your home? * PCP BOBBY * Pharmacy [facility] * Preadmission Environment Home Alone * ADLs Independent * Equipment None * List name and contact numbers for known caregivers / representatives who currently or will assist patient after discharge: KARI HAMPTON JOSE - [facility] - [phone] * Verbal permission to speak to the caregivers and representatives has been obtained from the patient. Yes * Community resources currently utilized None * Additional services required to return to the preadmission environment? No * Can the patient safely return to the preadmission environment? Yes * Has this patient been hospitalized within the prior 30 days at any hospital? No Last DP export: 01/01/19 12:37 pm Patient Name: KYLAH PASTOR Page 36774 at 1352 All edits/amendments must be made on the electronic document DICTATION DATE: 01/01/19 1352 CONTENT DIRECTOR: ANIYA 01/01/19 1352 RPT#: [id number] DC DATE:12/31/18 STATUS: DIS IN [facility] [address] [place] [address] END OF REPORT
--- NOTE | 2019-01-04 16:41 | OP ---
PATIENT NAME: KYLAH PASTOR MEDICAL RECORD: [id number] :[birth year] LOCATION:[facility] ADMISSION DATE:12/28/18 SURGEON: ALEX BARRAGAN MD DATE OF OPERATION: 12/30/2018 PROCEDURES: 1. Left heart catheterization. 2. Selective coronary angiography. 3. Left ventriculogram. 4. IFR LAD. 5. IFR RCA. INDICATION: Chest pain compatible with angina. Abnormal ECG. PROCEDURE IN DETAIL: After informed consent was obtained and after a detailed description of risks, benefits as well as alternative therapies, the patient elected to proceed with angiogram and heart catheterization. The right femoral area was prepped and draped in normal sterile fashion. Right femoral artery was cannulated via modified Seldinger technique with placement of 5-Albanian sheath. All catheters exchanged through this sheath. FINDINGS: Left ventriculogram was performed in standard 30-degree FREGOSO view, reveals good cardiac wall motion throughout all segments. Overall ejection fraction estimated at 55% to 60%. SELECTIVE CORONARY ANGIOGRAPHY: 1. Left main is with no significant angiographic disease. 2. Left anterior descending has moderate irregularities; however, there is a diagonal system with questionable stenosis up to 40% to 50%. IFR however, did not reveal that this was significant. 3. The left circumflex has moderate irregularities, but no flow-limiting stenosis. 4. Right coronary has moderate irregularities in the mid vessel. IFR reported that this is not significant. OVERALL IMPRESSION: Minimal coronary artery disease is present. No flow limiting stenosis by IFR. Continue medical management of the coronary artery disease and cardiac risk factors. TRANSINT:[id number] Voice Confirmation ID: [id number] DOCUMENT ID: [id number] ALEX BARRAGAN MD at 1641 CC: [id number] DICTATION DATE: 12/30/18 1135 RUNNER OUT: 12/30/18 2000 DIS IN 12/31/18 [place] [address] [place] [address]
--- NOTE | 2019-01-04 16:41 | CN ---
PATIENT NAME:KYLAH PASTOR MEDICAL RECORD: [id number] : 67 LOCATION:[id number] ADMIT DATE: 12/28/18 ACCOUNT: [id number] CONSULTING PHYSICIAN: ALEX BARRAGAN MD REFERRING PHYSICIAN: BRONSON CHATTERJEE MD DATE OF CONSULTATION: 12/29/2018 DIAGNOSES: 1. Status post carotid endarterectomy. 2. Angina. 3. Abnormal ECG. 4. Hypertension. 5. Hyperlipidemia. HISTORY OF PRESENT ILLNESS: Mrs. Pastor is in the hospital status post carotid endarterectomy. Last night, she began having chest pain and chest pressure. She was also noted to be bradycardic in the 30s. She is on metoprolol 25 mg b.i.d. This was held. Her EKG has ST-T changes anteriorly between her preop EKG. Her EKG with chest pain and this morning she is pain free at this time. PHYSICAL EXAMINATION: GENERAL APPEARANCE: Well-nourished, well-developed, appears stated age. Level of distress, comfortable. PSYCHIATRIC: Mental status, alert, normal affect. Orientation, oriented to time, place and person. EYES: Lids and conjunctiva, noninjected. No discharge, no pallor. ENT: Lips, teeth, gums, normal dentition. Oropharynx, no cyanosis, no pallor. NECK: Carotid arteries, bilateral normal upstroke, no bruits, no thrills. JUGULAR VEINS: No jugular venous pressure or distention. CERVICAL LYMPH NODES: Nontender, nonenlarged. THYROID: Not enlarged. Nontender. No nodules. LUNGS: Respiratory effort, unlabored. CHEST: Normal curvature. No thoracic deformity. No chest wall tenderness. Percussion, resonant. Auscultation, clear. No wheezes, no rales, no rhonchi. CARDIOVASCULAR: Precordial exam, nondisplaced. No heaves or pericardial thrills. Rate and rhythm, regular. Heart sounds, normal S1, normal S2. No S3, no gallop, no rub. Systolic murmur, not heard. Diastolic murmur, not heard. EXTREMITIES: No cyanosis, no edema. Peripheral pulses, full and equal in all extremities, except as noted. No bruits appreciated. ABDOMEN: Soft, nondistended. Normal aorta. No bruit. Nontender. No masses. Liver, nontender, no hepatomegaly. Spleen, nontender, no splenomegaly. MUSCULOSKELETAL: No joint tenderness. No joint swelling. No erythema. NEUROLOGICAL: Normal gait, normal strength, normal tone. SKIN: Warm and dry. OVERALL IMPRESSION: Known carotid disease with chest pain and abnormal ECG with changes. At this time, we will continue to hold the Lopressor due to the bradycardia and evaluate the coronaries with coronary angiography. TRANSINT:[id number] Voice Confirmation ID: [id number] DOCUMENT ID: [id number] CONSULT REPORT [id number] KYLAH PASTOR, ALEX LANGLEY at 1641 CC: [id number] DICTATION DATE: 12/29/18 1103 SLOT TECHNICIAN: 12/29/18 1146 DIS IN 12/31/18 [facility] [address] [place] [address]
== END 2018-12-31 14:24 | disposition home or self-care (01) | DRG 39 ==
LOC: D.CVICU 12-28 06:40 → D.SDCHOLD 12-28 06:40 → D.CVICU 12-28 11:37
PROVIDERS: Internal Medicine Interventional Cardiology; ADMIT Thoracic Surgery (Cardiothoracic Vascular Surgery); ATTEND Thoracic Surgery (Cardiothoracic Vascular Surgery)
PROC: 03CK0ZZ Extirpation of Matter from Right Internal Carotid Artery, Open Approach (ICD-10-PCS; 2018-12-28)
PROC: 03UK0JZ Supplement Right Internal Carotid Artery with Synthetic Substitute, Open Approach (ICD-10-PCS; 2018-12-28)
PROC: B2151ZZ Fluoroscopy of Left Heart using Low Osmolar Contrast (ICD-10-PCS; 2018-12-30)
PROC: 4A023N7 Measurement of Cardiac Sampling and Pressure, Left Heart, Percutaneous Approach (ICD-10-PCS; 2018-12-30)
PROC: B2111ZZ Fluoroscopy of Multiple Coronary Arteries using Low Osmolar Contrast (ICD-10-PCS; principal; 2018-12-30 10:34)
DX: I65.21 Occlusion and stenosis of right carotid artery (principal); I10 Essential (primary) hypertension; E78.5 Hyperlipidemia, unspecified; I25.119 Atherosclerotic heart disease of native coronary artery with unspecified angina pectoris; K21.9 Gastro-esophageal reflux disease without esophagitis; F17.200 Nicotine dependence, unspecified, uncomplicated; R00.1 Bradycardia, unspecified

== ENCOUNTER 2019-05-17 09:00 | Outpatient (CLI) | payer BC ==
[2018-12-28 14:51] VITALS: BMI 34.0
[~2019-05-17 09:00] MED LIST changes: +NICORETTE2 MG PO; +ULTRAM50 MG PO
== END 2019-05-17 10:00 | disposition home or self-care (01) ==
LOC: D.MAMMO 09:00
PROVIDERS: ATTEND Family Medicine
DX: Z12.31 Encounter for screening mammogram for malignant neoplasm of breast (principal)